=== PATIENT | male | born 1950 | race Hispanic/Latino ===

== ENCOUNTER → 2019-07-12 | Day surgery (SDC) | payer MEDICARE ==
--- NOTE | 2019-07-10 10:30 | NUR ---
Patient reported he is on an unknown name [facility] for a research study. Patient and patient's daughter Shantell instructed to contact Research office for further instructions if okay to take prior to heart catheterization procedure. Patient and patient's daughter verbalized understanding and had no questions at this time.
[2019-07-10 10:50] LABS: BASOPHILS # (AUTO) 0.1 (0.0-0.1); BASOPHILS % 0.9 % (0.0-1.0); EOSINOPHILS # (AUTO) 0.3 (0.0-0.4); EOSINOPHILS % 4.2 % (0.0-6.0); HEMATOCRIT 36.7 % (38.2-49.6); LYMPHOCYTES % 25.7 % (18.0-39.1); MEAN CORPUSCULAR HEMOGLOBIN 25.5 pg (28-32); MEAN CORPUSCULAR HGB CONC 32.7 g/dL (31-35); MEAN CORPUSCULAR VOLUME 77.9 fL (81-99); MONOCYTES # (AUTO) 0.6 (0.2-0.8); MONOCYTES % 8.2 % (4.4-11.3); NEUTROPHILS # (AUTO) 4.8 (2.1-6.9); NEUTROPHILS % 60.6 % (38.7-80.0); PLATELET COUNT 289 x10e3/uL (140-360); RED BLOOD COUNT 4.71 x10e6/uL (4.3-5.7); RED CELL DISTRIBUTION WIDTH 15.8 % (11.7-14.4)
[2019-07-10 11:13] LABS: ALANINE AMINOTRANSFERASE 22 IU/L (0-55); ALBUMIN 4.3 g/dL (3.5-5.0); ALKALINE PHOSPHATASE 23 IU/L (40-150); ANION GAP 12.4 mmol/L (8-16); BLOOD UREA NITROGEN 21 mg/dL (7-26); BUN/CREATININE RATIO 23 (6-25); CALCIUM 9.1 mg/dL (8.4-10.2); CARBON DIOXIDE 27 mmol/L (22-29); CHLORIDE 102 mmol/L (98-107); CREATININE, SERUM 0.92 mg/dL (0.72-1.25); EST GLOMERULAR FILTRATION RATE > 60 ML/MIN (60-); GLUCOSE 201 mg/dL (74-118); POTASSIUM 4.4 mmol/L (3.5-5.1); SODIUM 137 mmol/L (136-145)
[2019-07-12] VITALS (7 sets, daily range): BP systolic 116–153; BP diastolic 56–98
[~2019-07-12] VITALS: Ht 170.2 cm; Wt 77.1 kg
[~2019-07-12] MED LIST: AMLODIPINE BESY10 MG PO; ASPIR 8181 MG PO; CENTRUM SILVER1 EAC3 PO; CRESTOR10 MG PO; FENTANYL CITRATE/PF 100MCG/2 ML INJ ONE; FLOMAX0.4 MG PO; GLIPIZIDE5 MG PO; HEPARIN SOD/SOD CHLORIDE 2,000 ML ONE; IOPAMIDOL 370 MG/ML 200 ML INFUS..BTL INJ ONE; LIDOCAINE HCL 2% LOCAL 20 ML VIAL ONE; LOSARTAN POTAS100 MG PO; METFORMIN HCL500 MG PO; METOPROLOL SUCC25 MG PO; MIDAZOLAM HCL 2 MG/2 ML VIAL ONE; PLAVIX75 MG PO; SODIUM CHLORIDE 0.9% 1000ML 1,000 ML ONE; VERAPAMIL HCL 2.5 MG/ML 2 ML VIAL ONE; ZETIA10 MG PO; [UNRECOGNIZED DRUG - OTHER] PO
--- NOTE | 2019-07-12 09:30 | NUR ---
0930am RECEIVING NOTE [facility] [employer] [facility]............................................................... Bedside report received from KENDALL Mejia. [id number]. Alert oriented and appropriate, PERRLA, respirations even and unlabored to room air. Pulses x4 extremities equal and strong. Pedal pulses PT/DP X4 and marked. Cap fill brisk < 3 sec. Rt TR band approach ok to decrease at 1025a No gross issues pain pallor pressure or dysrhythmia. Skin warm and dry integrity appears W/D. IV 20g to left hand , presents healthy w/o s/s of infiltration or complaint. Abdomen soft and supple. pt offered toileting, denies need to urinate or defecate. No personal affects with patient. Family at bedside. Pt and family verbalizes understanding of POC. Currently w/o complaint of pain or need. loco/rn
--- NOTE | 2019-07-12 10:25 | NUR ---
1025amRADIAL COMPRESSION REMOVAL NOTE: Initial Cuff volume xx cc 1025 am -2cc Removed No hematoma/bleeding noted with normal neurovascular function. 1045 am -5cc Removed No hematoma/ bleeding noted with normal neurovascular function. 1100 am -5cc Removed No hematoma/bleeding noted with normal neurovascular function. Air removal completed. Stasis achieved sterile 2x2,Tegaderm, Coban dressing No hematoma, bleeding noted with normal neurovascular function. Wrist splint in place. Pt instructed on POC. Ds/Rn
--- NOTE | 2019-07-12 11:00 | NUR ---
1100am [facility] [employer] [employer] DISCHARGE NURSING NOTE Pt meets DC criteria. Rt Tr band assessed for s/s of complication and presence of hematoma. Skin warm, dry, no discolor, and pulses present. IV removed from left hand . Distal tip appears intact. VS WNL. Pt denies pain, sob, or need at this time. Family at bedside. Review of discharge paperwork and follow up instructions. verbalized understanding. Pt to wheelchair and transported to front of hospital. Transferred to private vehicle under own strength w/o incident with DC paperwork in hand. - loco/mark
--- NOTE | 2019-08-11 15:28 | Operative Report ---
DATE OF PROCEDURE: 07/12/2019 SURGEON: Lennox Erazo MD INDICATION FOR PROCEDURE: Chest pain, abnormal stress test. PREPROCEDURE ASSESSMENT: The risks, benefits, and alternatives to treatment were explained to the patient prior to the procedure. The patient was deemed to be an appropriate candidate for moderate sedation. Informed consent was obtained and documented in the medical record. MEDICATIONS: Please see nursing notes for medications administered throughout the procedure. PROCEDURES PERFORMED: 1. Coronary angiography, right radial approach. 2. Left heart catheterization. PROCEDURE IN DETAIL: The patient was brought to the cardiac catheterization laboratory in a fasting state. Right wrist was prepped and draped in a sterile fashion. Access to the right radial artery was obtained using modified Seldinger technique. Coronary angiography was performed using a 5-[place] Radha radial catheter. Left heart catheterization was performed using pigtail catheter. All catheters were removed over wire. Access site was closed using a TR band device. SIGNIFICANT FINDINGS: Left main, no significant CAD. LAD, large vessel, two large diagonal branches, diagonal 1 with 40% to 50% stenosis in the proximal portion. The diagonal 2 is a 2 mm vessel, but 70% lesion in the proximal portion, but tortuous LAD after the bifurcation of diagonal 2 with a small vessel and tapers out before reaching the apex. The left circumflex is a medium-sized nondominant vessel with only one significant OM branch. RCA extremely large and dominant RCA, very large PL and PDA system, but 30% to 40% plaquing in the posterolateral branch, otherwise no significant CAD in the RCA. GRAFTS AND IMPLANTS: None. SPECIMEN REMOVED: None. COMPLICATIONS: None. ESTIMATED BLOOD LOSS: 10 mL. FINAL RECOMMENDATIONS: Continue optimal medical therapy and risk factor control. Lennox Erazo MD KVP/MODL /[id number]
== END | disposition home or self-care (01) ==
LOC: CATH LAB 06:25
PROVIDERS: ATTEND Internal Medicine
DX: I25.119 Atherosclerotic heart disease of native coronary artery with unspecified angina pectoris (principal); R94.39 Abnormal result of other cardiovascular function study; I10 Essential (primary) hypertension; R09.89 Other specified symptoms and signs involving the circulatory and respiratory systems; E78.5 Hyperlipidemia, unspecified; I73.9 Peripheral vascular disease, unspecified; E11.69 Type 2 diabetes mellitus with other specified complication; E66.9 Obesity, unspecified; Z01.812 Encounter for preprocedural laboratory examination; Z79.02 Long term (current) use of antithrombotics/antiplatelets; Z79.82 Long term (current) use of aspirin; Z79.84 Long term (current) use of oral hypoglycemic drugs; Z68.28 Body mass index [BMI] 28.0-28.9, adult
CPT/HCPCS: 36415; 80053; 85025; 93454; C1769; C1887; J2001; J2250; J3010; J7030; Q9967; 99152